=== PATIENT | male | born 1950 | race Two or more races ===

== ENCOUNTER → 2016-10-12 | Outpatient (CLI) | payer OTHER | LOC: CIMAGING 16:24 | PROVIDERS: ATTEND Family Medicine | DX: M17.12 Unilateral primary osteoarthritis, left knee (principal) | CPT/HCPCS: 73562-PO ==

== ENCOUNTER → 2017-02-22 | Outpatient (CLI) | payer OTHER | LOC: CIMAGING 14:04 | PROVIDERS: ATTEND Family Medicine | DX: M17.11 Unilateral primary osteoarthritis, right knee (principal) | CPT/HCPCS: 73560-PO ==

== ENCOUNTER → 2017-07-21 | Outpatient (CLI) | payer OTHER | LOC: CIMAGING 18:18 | PROVIDERS: ATTEND Family Medicine | DX: M43.17 Spondylolisthesis, lumbosacral region (principal); M51.86 Other intervertebral disc disorders, lumbar region | CPT/HCPCS: 72100-PO ==

== ENCOUNTER → 2017-08-28 | Outpatient (CLI) | payer OTHER, MEDICARE | LOC: FIMAGING 08:43 | PROVIDERS: ATTEND Family Medicine | DX: M51.36 Other intervertebral disc degeneration, lumbar region (principal); M51.27 Other intervertebral disc displacement, lumbosacral region; M48.061 Spinal stenosis, lumbar region without neurogenic claudication ==

== ENCOUNTER → 2018-03-04 | Outpatient (CLI) | payer OTHER, MEDICARE | LOC: FIMAGING 10:16 | PROVIDERS: ATTEND Orthopaedic Surgery | DX: Z01.818 Encounter for other preprocedural examination (principal); M17.2 Bilateral post-traumatic osteoarthritis of knee ==

== ENCOUNTER 2018-03-09 12:00 | Observation (INO) | payer OTHER, MEDICARE ==
--- NOTE | 2018-04-13 06:17 | PDHPUP ---
History & Physical Update H&P update statement: This history and physical update is based on an assessment of the patient which was completed after admission or registration (within 24 hours), but prior to the surgery/procedure. H&P update: H&P reviewed & patient examined, no change in patient's condition since H&P completed
[2018-04-13] MEDS ORDERED: TRANEXAMIC ACID 3,000 MG/50 ML BAG IRR ONE (10:29)
[2018-04-13] MEDS ORDERED: VANCOMYCIN 1 GM VIAL ONE (10:29)
[2018-04-13] MEDS ORDERED: FAMOTIDINE 20 MG TAB PO ONE (11:11)
[2018-04-13] MEDS ORDERED: DEXAMETHASONE 4 MG/ML VIAL IVP ONE (11:11)
[2018-04-13] MEDS ORDERED: ACETAMINOPHEN 325 MG TAB PO ONE (11:11)
[2018-04-13] MEDS ORDERED: ceFAZolin 2 GM/DEXTROSE 100 ML IV ONE (11:11)
[2018-04-13] MEDS ORDERED: LR 1,000 ML IV ONE (11:12)
[2018-04-13] MEDS ORDERED: BUPIVACAINE 0.25% 30 ML SDV ONE (11:20)
[2018-04-13] MEDS ORDERED: PROPOFOL/EMULSION 500 MG/50 ML BOTTLE IV ONE ×2 (11:42→13:48)
[2018-04-13] MEDS ORDERED: LIDOCAINE 2% 5 ML SDV ONE (11:42)
[2018-04-13] MEDS ORDERED: ROPIVACAINE 0.2% 80 MG, EPINEPHrine 0.2 MG, KETOROLAC TROMETHAMINE 30 MG in SYRINGE 0 ML IU ONE (13:00)
[2018-04-13] MEDS ORDERED: TRANEXAMIC ACID 3,000 MG in NS (SYRINGE) 50 ML IRR ONE (13:00)
[2018-04-13] MEDS ORDERED: MIDAZOLAM 2 MG/2 ML VIAL ONE (13:17)
[2018-04-13] MEDS ORDERED: fentaNYL 100 MCG/2 ML INJ ONE (13:35)
[2018-04-13] MEDS ORDERED: ROPIVACAINE HCL 150 MG/30 ML INJ ONE (13:36)
[2018-04-13] MEDS ORDERED: MIDAZOLAM 2 MG/2 ML VIAL IVP ONE (13:47)
--- NOTE | 2018-04-13 13:48 | PDANEPAE ---
ANE History of Present Illness knee resurfacing ANE Past Medical History - Cardiovascular History Hx Hypertension: Yes Hx Arrhythmias: No Hx Chest Pain: No Hx Coronary Artery / Peripheral Vascular Disease: No Hx CHF / Valvular Disease: No Hx Palpitations: No - Pulmonary History Hx COPD: No Hx Asthma/Reactive Airway Disease: No Hx Recent Upper Respiratory Infection: No Hx Oxygen in Use at Home: No Hx Sleep Apnea: No Sleep Apnea Screening Result - Last Documented: Positive - Neurologic History Hx Cerebrovascular Accident: No Hx Seizures: No Hx Dementia: No - Endocrine History Hx Diabetes: No Hypothyroid: No Hyperthyroid: No Obesity: moderate - Renal History Hx Renal Disorders: No - Liver History Hx Hepatic Disorders: No - Neurological & Psychiatric Hx Hx Neurological and Psychiatric Disorders: No - Cancer History Hx Cancer: No - Congenital Disorder History Hx Congenital Disorders: No - GI History GERD: mild Hx Gastrointestinal Disorders: No - Other Health History Other Health History: none - Chronic Pain History Chronic Pain: Yes (lower back arthritis) - Surgical History Prior Surgeries: none in last 5 yrs. inguinal hernia repair 20yrs ago. bilat cataract surgery ANE Review of Systems Review of Systems: - Exercise capacity Exercise capacity: >=4 METS METS (RN): 4 METS ANE Patient History - Allergies Allergies/Adverse Reactions: No Known Allergies Allergy (Verified 02/10/18 10:39) - Home Medications Home medications: home medication list seen and reviewed Home Medications: Atorvastatin Calcium [Lipitor 20 mg (*)] 20 mg PO HS 02/10/18 [Last Taken ] Finasteride [Proscar 5 MG (*)] 5 mg PO DAILY 02/10/18 [Last Taken 04/12/18] Multivitamins [Multivitamin (*)] 1 each PO DAILY 02/10/18 [Last Taken 4 Weeks Ago ~03/16/18] Quinapril HCl 40 mg PO DAILY 02/10/18 [Last Taken 04/12/18] Tamsulosin HCl [Flomax 0.4 MG (*)] 0.4 mg PO DAILY 02/10/18 [Last Taken 04/12/18 ] Diclofenac Sodium 04/13/18 [Last Taken 04/05/18] Glucosamine 04/13/18 [Last Taken 3 Weeks Ago ~03/23/18] - NPO status NPO Status: no food or drink >8 hours NPO Since - Liquids (Date): 04/13/18 NPO Since - Liquids (Time): 09:00 NPO Since - Solids (Date): 04/12/18 NPO Since - Solids (Time): 20:30 - Anes Hx Anes Hx: no prior problems - Smoking Hx Smoking Status: Former smoker - Family Anes Hx Family Hx Anesthesia Complications: none ANE Labs/Vital Signs - Vital Signs Blood Pressure: 182/101 Heart Rate: 80 Respiratory Rate: 18 O2 Sat (%): 95 Height: 175.26 cm Weight: 108.862 kg ANE Physical Exam - Airway Mallampati Score: Class 2 Mouth exam: normal dental/mouth exam - Pulmonary Pulmonary: no respiratory distress - Cardiovascular Cardiovascular: regular rate and rhythym - ASA Status ASA Status: II ANE Anesthesia Plan Anesthesia Plan: spinal Regional Anesthesia: adductor canal FNB
[2018-04-13] MEDS ORDERED: TEMAZEPAM 15 MG CAP PO PRN (14:07)
[2018-04-13] MEDS ORDERED: BISACODYL 10 MG SUPP PR PRN (14:07)
[2018-04-13] MEDS ORDERED: PROMETHAZINE HCL 25 MG SUPPR PR PRN (14:07)
[2018-04-13] MEDS ORDERED: DIPHENOXYLATE/ATROPINE LOMOTIL 1 TAB PO PRN (14:07)
[2018-04-13] MEDS ORDERED: PROMETHAZINE HCL 25 MG/ML INJ IVP PRN (14:07)
[2018-04-13] MEDS ORDERED: METOCLOPRAMIDE 10 MG/2 ML VIAL IVP PRN (14:07)
[2018-04-13] MEDS ORDERED: diphenhydrAMINE 25 MG CAP PO PRN (14:07)
[2018-04-13] MEDS ORDERED: ONDANSETRON 4 MG/2 ML VIAL IVP PRN ×2 (14:07→14:21)
[2018-04-13] MEDS ORDERED: MAGNESIUM HYDROXIDE 30 ML UDCUP PO PRN (14:07)
[2018-04-13] MEDS ORDERED: CYCLOBENZAPRINE 10 MG TAB PO PRN (14:07)
[2018-04-13] MEDS ORDERED: POLYETHYLENE GLYCOL 3350 17 GM PKT PO PRN (14:07)
[2018-04-13] MEDS ORDERED: LACTULOSE 20 GM/30 ML UDCUP PO PRN (14:07)
[2018-04-13] MEDS ORDERED: ONDANSETRON DISINTEGRATING 4 MG TAB PO PRN (14:07)
[2018-04-13] MEDS ORDERED: fentaNYL 100 MCG/2 ML INJ IVP PRN (14:21)
[2018-04-13] MEDS ORDERED: LR 500 ML IV PRN (14:21)
[2018-04-13] MEDS ORDERED: ALBUTEROL 3 ML DEYVIAL IH PRN (14:21)
[2018-04-13] MEDS ORDERED: NALOXONE HCL 0.4 MG/ML INJ IVP PRN (14:21)
[2018-04-13] MEDS ORDERED: ePHEDrine SULFATE 25 MG/5 ML SYR ONE (14:23)
[2018-04-13] MEDS ORDERED: LR 1,000 ML IV SCH (14:30)
--- NOTE | 2018-04-13 14:50 | POSTOPPROG ---
Post Op Note Date of Operation: 04/13/18 Surgeon: Annemarie Perry Sales Order Clerk: Sharifa Perry PAc, Abelino Talbot PAc Anesthesiologist: Terra Anesthesia: Spinal Pre-op Diagnosis: L knee djd Post-op Diagnosis: same Indication: pain Procedure: L med partial knee with robot Findings: djd knee Inf/Abcess present in the surg proc area at time of surgery?: No EBL: 50-100
--- NOTE | 2018-04-13 15:00 | POSTANESTH ---
Post Anesthetic Evaluation Cardiovascular Status: Normal, Stable Respiratory Status: Normal, Stable Level of Consciousness/Mental Status: Can Participate in Eval Pain Control: Adequate, Prn Tx Ordered Nausea/Vomiting Control: Adequate, Prn Tx Ordered Complications Possibly Related to Anesthesia: None Noted
[2018-04-13] MEDS: oxyCODONE IR 5 MG TAB PO PRN ×2 (17:49→22:30)
[2018-04-13] MEDS: ceFAZolin 2 GM/DEXTROSE 100 ML IV SCH (18:12)
[2018-04-13] MEDS ORDERED: ATORVASTATIN CALCIUM 20 MG TAB PO SCH (21:00)
[2018-04-13] MEDS ORDERED: ceFAZolin 2 GM/DEXTROSE 100 ML IV SCH (22:00)
[2018-04-13] MEDS: ASPIRIN 81 MG CHEWABLE TAB PO SCH (22:29)
[2018-04-13] MEDS: FAMOTIDINE 20 MG TAB PO SCH (22:30)
[2018-04-13] MEDS: SENNOSIDES/DOCUSATE SODIUM TAB PO SCH (22:30)
[2018-04-13] MEDS: ACETAMINOPHEN 325 MG TAB PO SCH (22:33)
[2018-04-14] MEDS: ACETAMINOPHEN 325 MG TAB PO SCH ×2 (02:05→08:26)
[2018-04-14] MEDS: ceFAZolin 2 GM/DEXTROSE 100 ML IV SCH (02:31)
[2018-04-14] MEDS: ASPIRIN 81 MG CHEWABLE TAB PO SCH (08:25)
[2018-04-14] MEDS: SENNOSIDES/DOCUSATE SODIUM TAB PO SCH (08:25)
[2018-04-14] MEDS: FAMOTIDINE 20 MG TAB PO SCH (08:25)
[2018-04-14] MEDS ORDERED: QUINAPRIL HCL 40 MG PO SCH (09:00)
[2018-04-14] MEDS ORDERED: TAMSULOSIN HCL 0.4 MG CAP PO SCH (09:00)
[2018-04-14] MEDS ORDERED: FINASTERIDE 5 MG TAB PO SCH (09:00)
--- NOTE | 2018-04-14 09:28 | SOAPPROG ---
SOAP Progress Note Assessment/Plan: Assessment: Patient is doing well POD 1 s/p L med MPL Pain management: pain is well controlled on oral pain meds. VTE ppx: recommend aspirin 81 mg BID for 4 weeks, cont MAGALI and SCDs D/c planning: Patient has done better than anticipated and would like to be discharged to home today. Patient must be released from PT before discharge to home. Plan: 04/14/18 09:27 Subjective: patient is doing well today, denies SOB, chest pain and n/V Objective: Vital Signs Temp Pulse Resp BP Pulse Ox 36.3 C 53 L 16 178/98 H 93 04/14/18 07:20 04/14/18 07:20 04/14/18 07:20 04/14/18 07:20 04/14/18 07:20 Laboratory Results 04/14/18 04:48 04/13/18 04/14/18 04/15/18 05:59 05:59 05:59 Intake Total 1020 Output Total 980 325 Balance 40 -325 LLE: incision dressing is clean and dry, NVI, +pf/df ICD10 Worksheet Patient Problems: Problems Problem Status Onset Primary localized osteoarthritis of left knee Acute
--- NOTE | 2018-04-14 09:38 | ASMTLACE ---
LACE Length of stay for Answers: 2 days current admission Acuity / Level of Answers: No Care: Did the patient have an inpatient admission? Comorbidities - select Answers: Opioid dependence all that apply / Chronic pain Other Notes: HTN # of Emergency department Answers: 0 visits in the last 6 months Score: 7 Date Signed: 04/14/2018 09:37 AM Electronically Signed By:RAFY Frey
[2018-04-14] MEDS: oxyCODONE IR 5 MG TAB PO PRN (11:06)
[2018-04-14 11:08] VITALS: BP 152/100
--- NOTE | 2018-04-14 11:46 | GDS ---
[f rep st] DISCHARGE SUMMARY SUPERVISING PHYSICIAN: Praveen Perry MD ADMISSION DIAGNOSIS: Left knee osteoarthritis. DISCHARGE DIAGNOSIS: Left knee osteoarthritis. PROCEDURE: Left partial knee arthroplasty, robot-assisted. VTE PROPHYLAXIS: Recommend aspirin 81 mg twice daily for 4 weeks. BRIEF DESCRIPTION OF HOSPITAL STAY: Patient was admitted for an elective joint arthroplasty. The pa tient tolerated the procedure well and has passed physical therapy. The patient was given appropriat e antibiotic prophylaxis and venous thromboembolism prophylaxis. The patient's pain was well control led on oral pain medication, patient was holding down food, and had urinated. Decision was made to d ischarge the patient. The patient was given post-operative prescriptions pre-operatively. PLAN: Follow up with Dr. Perry's office on May 05 at 9:30. /[id number]/MODL
--- NOTE | 2018-04-14 12:51 | GOP ---
[f rep st] OPERATIVE REPORT DATE OF OPERATION: 04/13/2018 SURGEON: Praveen Perry MD JOURNEYMAN CARPENTER: 1. Sharifa Perry PA-C. 2. Saira Talbot PA-C. ANESTHESIA: Spinal. PREOPERATIVE DIAGNOSIS: Left knee osteoarthritis. POSTOPERATIVE DIAGNOSIS: Left knee osteoarthritis. PROCEDURE PERFORMED: Left medial compartment partial replacement with computer navigation, robotic a ssist, INOCENCIA uni-knee. FINDINGS: ESTIMATED BLOOD LOSS: 30 cc. INDICATIONS: This is a 67-year old male with progressive pain of the left knee unresponsive to conse rvative care. Risks and benefits of surgical intervention were explained in detail. DESCRIPTION OF PROCEDURE: The patient was brought to the operating room and placed on the table in s upine position. Spinal anesthesia was induced without difficulty. A pneumatic tourniquet was applie d about the left proximal thigh and the leg was prepped and draped in sterile fashion. Attention was turned first to the distal aspect of the left femur. At 3 cm proximal to the lateral rise of the fe mur, 2 percutaneous half pins were placed for fixation of the femoral array. In a similar fashion, 2 pins were placed anterolateral on the tibia for fixation of the tibial array. External land marking and registration of the hip center were performed without difficulty. After exsanguination by elevation, the tourniquet was inflated to 250 mmHg. Incision was made from the tibial tuberosity to the superior pole of the patella. Dissection was car ried out through the subcutaneous tissue to the deep fascia using Bovie electrocautery for hemostasis . Medial parapatellar arthrotomy was carried out to the superior pole of the patella. The medial co llateral ligament was elevated and the infrapatellar fat pad was resected. Internal femoral and tibi al registration was carried out without difficulty and the femoral and tibial checkpoints were placed and verified for accuracy. Attention was turned to the femur. The foot print for the size 6 femoral component was cut with the 6 mm bur using the adFreeq robotic system and verified for accuracy against the CT based plan. The hole was cut for the femoral post. In a similar fashion, the 6 mm bur was used to cut the foot print for t he size 6 tibial component using the LOPEZ system and verified for accuracy against the CT based plan. Attention was turned to the posterior aspect of the knee and remnants of the medial meniscus were exc ised. The posterior capsule was injected with ropivacaine, epinephrine and Toradol. Trial reduction was carried out and there was excellent range of motion, alignment and stability using the size 6 fe moral component and the size 6 tibial component, 6 mm x 8 mm polyethylene. All trials were then removed. The joint was thoroughly irrigated and carefully dried. One package o f cement and 1 gram of vancomycin were mixed in the vacuum mixer and placed on the fixation surfaces of all components. The components were implanted and all excess cement was thoroughly removed. Impla nt placement was verified against the CT view plan and found to be excellent. The tourniquet was deflated and all bleeders were coagulated. The wound was thoroughly irrigated and closed using interrupted sutures of 2-0 Vicryl for the joint capsule. The subcu was closed with 3-0 Vicryl and the skin with 4-0 Monocryl. Dermabond and Steri-Strips were applied, followed by a compr essive dressing. The patient was then moved from the operating room to the recovery room in good con dition, having tolerated the procedure well. CASE CLASSIFICATION: Clean. /[id number]/MODL
== END 2018-04-14 11:46 | disposition home or self-care (01) ==
LOC: INTOOBSV 04-13 10:44 → F3N 04-13 10:44
PROVIDERS: ADMIT Orthopaedic Surgery; ATTEND Orthopaedic Surgery
DX: M17.12 Unilateral primary osteoarthritis, left knee (principal); I10 Essential (primary) hypertension; Z87.891 Personal history of nicotine dependence
CPT/HCPCS: 27446; 73560; 97161; C1713; C1776; J0171; J0690; J1100; J1885; J2250; J2704; J2795; J3010; J3370